=== PATIENT | male | born 1965 | race American Indian/Alaskan Native ===

== ENCOUNTER 2018-10-24 08:48 | Emergency (ER) | payer SELFPAY ==
[2018-10-24] MEDS ORDERED: ASPIRIN PO ONE (08:52)
[2018-10-24 08:54] VITALS: BP 178/83
[2018-10-24 09:07] LABS: Basophils # (Auto) 0.1 K/mm3 (0.0-0.1); Basophils % (Auto) 1.3 % (0.0-1.8); Eosinophils # (Auto) 0.3 K/mm3 (0.0-0.4); Eosinophils % (Auto) 5.8 % (0.0-4.3); Hemoglobin 15.6 gm/dl (11.8-15.2); Lymphocytes % (Auto) 37.1 % (13.4-35.0); Mean Corpuscular HGB Conc 34 % (32-34); Mean Corpuscular Volume 99 fl (84-94); Monocytes # (Auto) 0.7 K/mm3 (0.0-0.8); Monocytes % (Auto) 13.3 % (0.0-7.3); Platelet Count 229 K/mm3 (140-440); Red Blood Count 4.66 M/mm3 (3.65-5.03); Red Cell Distribution Width 13.2 % (13.2-15.2)
[2018-10-24 09:26] LABS: BUN/Creatinine Ratio 12; Blood Urea Nitrogen 11 mg/dL (9-20); Calcium 9.1 mg/dL (8.4-10.2); Hemolysis Index 38
--- NOTE | 2018-10-24 09:42 | XRay Report ---
CHEST 2 VIEWS INDICATION / CLINICAL INFORMATION: Chest Pain. COMPARISON: None available. FINDINGS: SUPPORT DEVICES: None. HEART / MEDIASTINUM: The heart size and pulmonary vasculature are normal. The aorta is normal in wolfgang cathie. LUNGS / PLEURA: No significant pulmonary or pleural abnormality. No pneumothorax. ADDITIONAL FINDINGS: No significant additional findings. IMPRESSION: No acute findings. Signer Name: Philipp Vang MD Signed: 10/24/2018 9:38 AM Workstation Name: [id number]
--- NOTE | 2018-10-24 09:53 | Emergency Department Report ---
ED Chest Pain HPI - General Chief Complaint: Chest Pain Stated Complaint: CHEST PAIN/SOB Time Seen by Provider: 10/24/18 09:24 Source: patient Mode of arrival: Ambulatory Limitations: No Limitations - History of Present Illness Initial Comments: 53-year-old -[place] male presents to the emergency department with complaint of some midsternal chest pain that he says is a burning sensation and feels like a very intense episode of heartburn. Patient says that the symptoms started while he was drinking his coffee this morning. They have improved slightly but he is still experiencing it. It is associated with some mild shortness of breath. The discomfort does not radiate. He has a past medical history of hypertension. He tried some normal home remedies without much relief. His primary care physician is a Dr. Lebron Montano. He is a tobacco smoker but denies any illicit drug use. No recent travel or sick contacts at home. Severity scale (0 -10): 2 - Related Data Previous Rx's Medication Instructions Recorded Last Taken Type Albuterol Sulfate [Ventolin HFA] 2 puff IH Q4H PRN #1 hfa.aer.ad 01/17/14 Unknown Rx Azithromycin [Zithromax Z-ARIELA] 250 mg PO DAILY #6 tablet 01/17/14 Unknown Rx Loratadine [Claritin] 10 mg PO DAILY #30 tablet 01/17/14 Unknown Rx Promethazine /Codeine 5 ml PO Q6H PRN #120 udc 01/17/14 Unknown Rx [Phenergan/Codeine 6.25-10 mg/5 ml] Omeprazole 20 mg PO QDAY #20 capsule. 10/24/18 Unknown Rx Allergies Allergy/AdvReac Type Severity Reaction Status Date / Time No Known Allergies Allergy Verified 01/17/14 16:08 Heart Score - HEART Score History: Slightly suspicious EKG: Normal Age: 45-65 Risk factors: 1-2 risk factors Troponin: < normal limit HEART Score: 2 - Critical Actions Critical Actions: 0-3 pts:0.9-1.7%risk of adverse cardiac event.Candidate for discharge ED Review of Systems ROS: Stated complaint: CHEST PAIN/SOB Other details as noted in HPI Comment: All other systems reviewed and negative Constitutional: denies: chills Eyes: denies: eye pain, vision change ENT: denies: ear pain, throat pain Respiratory: shortness of breath. denies: cough Cardiovascular: chest pain. denies: palpitations Gastrointestinal: denies: nausea, vomiting Genitourinary: denies: dysuria, discharge Musculoskeletal: denies: back pain, arthralgia Skin: denies: rash, lesions Neurological: denies: headache, weakness ED Past Medical Hx - Past Medical History Previous Medical History?: Yes Hx Hypertension: Yes Additional medical history: denies kidney issues - Surgical History Past Surgical History?: Yes Additional Surgical History: left leg surgery - Social History Smoking Status: Current Every Day Smoker Substance Use Type: None - Medications Home Medications: Home Medications Medication Instructions Recorded Confirmed Last Taken Type Albuterol Sulfate [Ventolin HFA] 2 puff IH Q4H PRN #1 hfa.aer.ad 01/17/14 Unknown Rx Azithromycin [Zithromax Z-ARIELA] 250 mg PO DAILY #6 tablet 01/17/14 Unknown Rx Loratadine [Claritin] 10 mg PO DAILY #30 tablet 01/17/14 Unknown Rx Promethazine /Codeine 5 ml PO Q6H PRN #120 udc 01/17/14 Unknown Rx [Phenergan/Codeine 6.25-10 mg/5 ml] Omeprazole 20 mg PO QDAY #20 capsule. 10/24/18 Unknown Rx ED Physical Exam - General Limitations: No Limitations - Other Other exam information: GENERAL: The patient is well-developed well-nourished. HENT: Normocephalic. Atraumatic. Patient has moist mucous membranes. EYES: Extraocular motions are intact. Pupils equal reactive to light bilaterally. NECK: Supple. Trachea is midline. CHEST/LUNGS: Clear to auscultation. There is no respiratory distress noted. HEART/CARDIOVASCULAR: Regular. There is no tachycardia. There is no murmur. ABDOMEN: Abdomen is soft, nontender. Patient has normal bowel sounds. There is no abdominal distention. SKIN: Skin is warm and dry. NEURO: The patient is awake, alert, and oriented. The patient is cooperative. The patient has no focal neurologic deficits. The patient has normal speech. MUSCULOSKELETAL: There is no tenderness or deformity. There is no evidence of acute injury. ED Course Vital Signs 10/24/18 10/24/18 08:53 09:27 Temperature 97.8 F Pulse Rate 52 L Respiratory 16 15 Rate Blood Pressure 178/83 O2 Sat by Pulse 100 Oximetry BRYCE score - Bryce Score Age > 65: (0) No Aspirin use within the Past 7 Days: (0) No 3 or more CAD Risk Factors: (0) No 2 or more Angina events in past 24 hrs: (1) Yes (if pain is considered angina) Known CAD with more than 50% Stenosis: (0) No Elevated Cardiac Markers: (0) No ST Deviation Greater than 0.5mm: (0) No BRYCE Score: 1 ED Medical Decision Making - Lab Data Result diagrams: 10/24/18 08:54 10/24/18 08:54 - EKG Data -: EKG Interpreted by Me EKG shows normal: sinus rhythm, axis, intervals, QRS complexes (Q waves to the septal leads), ST-T waves Rate: bradycardia (49 bpm) - EKG Data When compared to previous EKG there are: previous EKG unavailable Interpretation: other (Q waves to the septal leads, sinus bradycardia) - Radiology Data Radiology results: image reviewed interpreted by me: Chest x-ray does not show any acute process. There are no pleural effusions, obvious pneumonia and there is no pneumothorax. - Medical Decision Making This patient presents with some midsternal chest burning sensation that has been going on since drinking his coffee this morning. It was also associated with some shortness of breath. EKG did not show any signs of ST elevation ND or dysrhythmia. The patient's labs have been unremarkable including negative troponins 2 and a negative d-dimer. Chest x-ray did not show any pleural effusions, pneumonia, pneumothorax, focal consolidation, or any other acute process. The patient was given a GI cocktail with Maalox and lidocaine and upon reevaluation says that his symptoms have improved, if not resolved. The patient is low on the Heart score and BRYCE score. The patient will be given a referral for gastroenterology, but his information is also been sent over to [facility] for close outpatient follow-up. He has been instructed to return to the emergency Department with any worsening of his symptoms or any acute distress. He will be started on omeprazole and we had a long conversation about dietary and/or lifestyle changes to make. - Differential Diagnosis ND, GERD, pneumonia, PE Critical Care Time: No Critical care attestation.: If time is entered above; I have spent that time in minutes in the direct care of this critically ill patient, excluding procedure time. ED Disposition Clinical Impression: Atypical chest pain, Tobacco use GERD (gastroesophageal reflux disease) Qualifiers: Esophagitis presence: esophagitis presence not specified Qualified Code(s): K21.9 - Gastro-esophageal reflux disease without esophagitis Disposition: TO HOME OR SELFCARE Is pt being admited?: No Condition: Stable Instructions: Chest Pain (ED), How to Stop Smoking (ED), Gastroesophageal Reflux Disease (ED) Additional Instructions: Please follow-up with your primary care physician in the next few days. Please try and quit smoking. Try and stay away from foods and drinks that are acidic, spicy, caffeinated, alcoholic. Do not eat and then lay down immediately afterwards. I am giving you a referral for a local making line worker, Dr. Holly, to follow up regarding your acid reflux symptoms. You will also be getting a phone call from a local cardiology group for an appointment in the next few days to follow up regarding her chest pain. Return to the emergency department with any return of your chest pain, worsening of your symptoms, or if any acute distress. Prescriptions: Omeprazole 20 mg PO QDAY #20 capsule. Referrals: LEBRON MONTANO SR, MD [Referring] - 2-3 Days ENID HOLLY MD [Staff Physician] - 2-3 Days [facility] [Provider Group] - 2-3 Days Forms: Work/School Release Form(ED) Time of Disposition: 12:58
[2018-10-24] MEDS ORDERED: LIDOCAINE VISCOUS 2% PO ONE (10:22)
[2018-10-24] MEDS ORDERED: ALUM-MAG HYDROX-SIMETH 200-200-20MG/5ML PO ONE (10:22)
== END 2018-10-24 13:05 | disposition home or self-care (01) ==
LOC: ED 08:48
DX: R07.2 Precordial pain (principal); K21.9 Gastro-esophageal reflux disease without esophagitis; I10 Essential (primary) hypertension; F17.200 Nicotine dependence, unspecified, uncomplicated; Z79.899 Other long term (current) drug therapy
CPT/HCPCS: 36415; 71046; 80048; 84484; 85025; 85379; 93005; 93010; 99284

== ENCOUNTER 2019-03-10 11:27 | Emergency (ER) | payer SELFPAY ==
--- NOTE | 2019-03-10 11:51 | Event Note ---
ED Screening Note ED Screening Note: This initial assessment/diagnostic orders/clinical plan/treatment(s) is/are subject to change based on patients health status, clinical progression and re- assessment by fellow clinical providers in the ED. Further treatment and workup at subsequent clinical providers discretion. Patient/guardian urged not to elope from the ED as their condition may be serious if not clinically assessed and managed. Initial orders include: 53yo BM states that he checked his BP earlier today and he his out of his Car vedilol HTN medication.
--- NOTE | 2019-03-10 13:16 | Emergency Department Report ---
ED Recheck HPI - General Chief Complaint: High BP Stated Complaint: HYPERTENSION Time Seen by Provider: 03/10/19 12:33 Source: patient Mode of arrival: Ambulatory Limitations: No Limitations - History of Present Illness Initial Comments: 53-year-old male states he has been out of his blood pressure medication, carvedilol 25 mg, 2 days. Patient denies headache, chest pain, shortness of breath, nausea or vomiting. MD Complaint: medication refill request -: days(s) (2) Returns Today for: request for prescription Symptoms Since Prior Visit: no new symptoms Context: ran out of medication Associated Symptoms: none. denies: chest pain, shortness of breath, nasuea - Related Data Previous Rx's Medication Instructions Recorded Last Taken Type Albuterol Sulfate [Ventolin HFA] 2 puff IH Q4H PRN #1 hfa.aer.ad 01/17/14 Unknown Rx Azithromycin [Zithromax Z-ARIELA] 250 mg PO DAILY #6 tablet 01/17/14 Unknown Rx Loratadine [Claritin] 10 mg PO DAILY #30 tablet 01/17/14 Unknown Rx Promethazine /Codeine 5 ml PO Q6H PRN #120 udc 01/17/14 Unknown Rx [Phenergan/Codeine 6.25-10 mg/5 ml] Omeprazole 20 mg PO QDAY #20 capsule. 10/24/18 Unknown Rx carvediloL [Coreg] 25 mg PO BID #60 tablet 03/10/19 Unknown Rx Allergies Allergy/AdvReac Type Severity Reaction Status Date / Time No Known Allergies Allergy Verified 01/17/14 16:08 ED Review of Systems ROS: Stated complaint: HYPERTENSION Other details as noted in HPI Comment: All other systems reviewed and negative Respiratory: denies: shortness of breath Cardiovascular: denies: chest pain Gastrointestinal: denies: nausea, vomiting Neurological: denies: headache, weakness, numbness, vertigo ED Past Medical Hx - Past Medical History Previous Medical History?: Yes Hx Hypertension: Yes Additional medical history: denies kidney issues - Surgical History Past Surgical History?: Yes Additional Surgical History: Left leg surgery s/t fracture - Social History Smoking Status: Current Every Day Smoker Substance Use Type: Alcohol - Medications Home Medications: Home Medications Medication Instructions Recorded Confirmed Last Taken Type Albuterol Sulfate [Ventolin HFA] 2 puff IH Q4H PRN #1 hfa.aer.ad 01/17/14 Unknown Rx Azithromycin [Zithromax Z-ARIELA] 250 mg PO DAILY #6 tablet 01/17/14 Unknown Rx Loratadine [Claritin] 10 mg PO DAILY #30 tablet 01/17/14 Unknown Rx Promethazine /Codeine 5 ml PO Q6H PRN #120 udc 01/17/14 Unknown Rx [Phenergan/Codeine 6.25-10 mg/5 ml] Omeprazole 20 mg PO QDAY #20 capsule. 10/24/18 Unknown Rx carvediloL [Coreg] 25 mg PO BID #60 tablet 03/10/19 Unknown Rx ED Physical Exam - General Limitations: No Limitations General appearance: alert, in no apparent distress - Head Head exam: Present: atraumatic, normocephalic - Eye Eye exam: Present: normal appearance - ENT ENT exam: Present: mucous membranes moist - Neck Neck exam: Present: normal inspection - Respiratory Respiratory exam: Present: normal lung sounds bilaterally. Absent: respiratory distress - Cardiovascular Cardiovascular Exam: Present: regular rate, normal rhythm - GI/Abdominal GI/Abdominal exam: Present: soft. Absent: distended, tenderness - Extremities Exam Extremities exam: Present: normal inspection - Neurological Exam Neurological exam: Present: alert, oriented X3, CN II-XII intact. Absent: motor sensory deficit - Psychiatric Psychiatric exam: Present: normal affect, normal mood - Skin Skin exam: Present: warm, dry, intact, normal color ED Course Vital Signs 03/10/19 11:46 Temperature 97.9 F Pulse Rate 80 Respiratory 18 Rate Blood Pressure 192/111 O2 Sat by Pulse 100 Oximetry ED Recheck MDM - Medical Decision Making Asymptomatic HTN. EKG done at triage and is unremarkable (normal sinus rhythm, LVH, no ST changes). Pt having no chest pain or shortness of breath. Refill given for carvedilol. Outpatient f/u given. Critical care attestation.: If time is entered above; I have spent that time in minutes in the direct care of this critically ill patient, excluding procedure time. ED Disposition Clinical Impression: Encounter for medication refill Disposition: DC-01 TO HOME OR SELFCARE Is pt being admited?: No Condition: Stable Instructions: Hypertension (ED), Heart Healthy Diet (ED) Prescriptions: carvediloL [Coreg] 25 mg PO BID #60 tablet Referrals: PRIMARY CARE, [Primary Care Provider] - 3-5 Days [facility] MD [Staff Physician] - 3-5 Days [facility] [Provider Group] - 3-5 Days Time of Disposition: 13:13
[2019-03-10 13:23] VITALS: BP 186/104
== END 2019-03-10 13:22 | disposition home or self-care (01) ==
LOC: ED 11:27
DX: I10 Essential (primary) hypertension (principal); F17.200 Nicotine dependence, unspecified, uncomplicated; Z76.0 Encounter for issue of repeat prescription
CPT/HCPCS: 93005; 93010; 99282